=== PATIENT | male | born 1945 | race Asian ===

== ENCOUNTER 2023-04-09 21:01 | Emergency (ER) | payer OTHER ==
[~2023-04-09] VITALS: Ht 175.3 cm; Wt 66.2 kg
[2023-04-09 21:45] LABS: Base Excess -2.3 mmol/L (-2.0-2.0)
[2023-04-09 22:18] LABS: Basophils # (auto) 0 10 ^3/uL (0-0.2); Basophils % (auto) 0.2 % (0.0-2.0); Eosinophils # (auto) 0.1 10 ^3/uL (0-0.8); Eosinophils % (auto) 0.7 % (0.0-7.0); Hematocrit 41.2 % (41.0-53.0); Hemoglobin 14.1 g/dL (13.5-17.5); Lymphocytes # (auto) 1.7 10 ^3/uL (0.4-5.4); Lymphocytes % (auto) 14.6 % (10.0-50.0); Mean Corpuscular Hemoglobin 31.5 pg (28.0-32.0); Mean Corpuscular Hgb Conc. 34.2 g/dL (32.0-36.0); Mean Corpuscular Volume 92.2 fL (80.0-100.0); Monocytes # (auto) 0.6 10 ^3/uL (0-1.3); Monocytes % (auto) 5.7 % (0.0-12.0); Neutrophils # (auto) 8.9 10 ^3/uL (1.6-8.6); Neutrophils % (auto) 78.8 % (37.0-80.0); Nucleated Red Blood Cells % 0.1 %; Red Blood Cells 4.47 10^6/uL (4.5-5.90); Red Cell Distribution Width 12.9 % (11.8-14.3); White Blood Cell 11.3 10^3/uL (4.4-10.8)
[2023-04-09 22:28] LABS: Alanine Aminotransferase 28 U/L (7-40); Albumin 4.7 g/dL (3.2-4.8); Alkaline Phosphatase 80 U/L (46-116); Anion Gap 8 (5-15); Aspartate Aminotransferase 14 U/L (13-40); BUN/Creatinine Ratio 17.3 (10.0-20.0); Bilirubin, Total 1.1 mg/dL (0.2-1.0); Blood Urea Nitrogen 22 mg/dL (9-23); Calcium 9.7 mg/dL (8.7-10.4); Carbon Dioxide 26 mmol/L (20-30); Chloride 111 mmol/L (98-107); Glucose 111 mg/dL (74-106); Lipase 55 U/L (12-53); Magnesium 2.2 mg/dL (1.6-2.6); Potassium 3.7 mmol/L (3.5-5.1); Sodium 145 mmol/L (136-145); Total Protein 7.9 g/dL (5.7-8.2)
[2023-04-09 23:03] LABS: Bilirubin, Direct 0.4 mg/dL (<0.3)
[2023-04-09 23:21] LABS: INR 1.06 (0.9-1.15); Prothrombin Time 11.1 sec (9.3-11.8)
[2023-04-09 23:35] VITALS: PULSE 87; RESP 13; O2SAT 96
[2023-04-10 01:06] VITALS: BP 153/92; PULSE 91; RESP 13; TEMP 98.8; O2SAT 93
== END 2023-04-10 01:16 | disposition short-term general hospital (02) ==
LOC: ER 21:01
DX: R41.82 Altered mental status, unspecified (principal); C71.1 Malignant neoplasm of frontal lobe; R94.31 Abnormal electrocardiogram [ECG] [EKG]; Z79.899 Other long term (current) drug therapy; Z79.01 Long term (current) use of anticoagulants
CPT/HCPCS: 36415; 36600; 70450; 71045; 80053; 82140; 82248; 82805; 83690; 83735; 84484; 85025; 85610; 93005